=== PATIENT | male | born 1950 | race Caucasian/White ===

== ENCOUNTER 2017-07-17 07:51 | Outpatient (CLI) | payer MEDICARE ==
[2017-07-17 08:26] LABS: Estimated GFR-MDRD - POC Greater than 90
--- NOTE | 2017-07-17 15:19 | MRI ---
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 COMPARISON: None. TECHNIQUE: Brain MRI and internal auditory canal MRI performed with and without intravenous Gadolinium administr ation. Multisequential, multiplanar imaging is performed. FINDINGS: No parenchymal hemorrhage. No extraaxial hematoma. No parenchymal mass, mass effect, or midline chad ft. Brain volume is age appropriate. Cortical cordero-white matter differentiation is preserved. Ventricles and sulci are patent and symmetric. Calvarium has a normal T1 marrow signal intensity. Midline brain parenchymal structures are unremark able. Central arterial flow voids are maintained. No restricted diffusion. No significant T1 or FLAIR white matter hyperintensities. No pathologic enhancement of the brain parenchyma. There is minimal mucosal thickening of the paranasal sinuses. There is partial mastoid air cell opac ification. Internal auditory canal MRI appropriate and essentially symmetric signal intensity in bilateral inner ear structures. There is partial mastoid air cell opacification. There is symmetric signal intensi ty in the 5th cranial nerve complex. There is linear enhancement along the superior aspect of the l eft internal auditory canal suggesting a small enhancing focus associated with the 7th cranial nerve. IMPRESSION: 1. Small linear enhancement in the left internal auditory canal involving the 7th nerve. 2. Partial opacification of both mastoid air cells. POS: [facility]
== END 2017-07-17 07:52 | disposition home or self-care (01) ==
LOC: SCSMRI 07:51
PROVIDERS: ATTEND Otolaryngology Plastic Surgery within the Head & Neck
DX: G51.0 Bell's palsy (principal); H74.90 Unspecified disorder of middle ear and mastoid, unspecified ear
CPT/HCPCS: 70553

== ENCOUNTER 2017-11-14 08:23 | Outpatient (CLI) | payer MEDICARE ==
[2017-11-14 08:56] LABS: Hemoglobin 14.6 g/dL (14.0-18.0); Mean Corpuscular HGB CONC 32.7 g/dL (32.0-36.0); Mean Corpuscular Hemoglobin 32.3 pg (27.0-31.0); Mean Corpuscular Volume 98.8 fl (80.0-94.0); Mean Platelet Volume 6.9 fL (7.4-10.4); Platelet Count 127 thou/uL (130-400); RBC Distribution Width 11.5 % (11.5-14.5); Red Blood Cell (RBC) Count 4.54 mill/uL (4.70-6.10); White Blood Cell (WBC) Count 3.4 thou/uL (4.8-10.8)
[2017-11-14 09:02] LABS: INR-International Normal Ratio 0.9; PTT 30.3 SEC (22.9-36.1); Prothrombin Time 12.7 SEC (12.0-14.7)
[2017-11-14 09:14] LABS: Anion Gap 13 mmol/L (10-20); BUN (Urea Nitrogen) 25 mg/dL (8.4-25.7); Calc. Creatinine Clearance 0 mL/min (70-130); Calcium 9.4 mg/dL (7.8-10.44); Carbon Dioxide 26 mmol/L (23-31); Chloride 106 mmol/L (98-107); Estimated GFR-MDRD Greater than 90; Glucose 105 mg/dL (80-115); Potassium 4.6 mmol/L (3.5-5.1); Sodium 140 mmol/L (136-145)
== END 2017-11-14 08:24 | disposition home or self-care (01) ==
LOC: LABBT 08:23
PROVIDERS: ATTEND Urology
DX: Z01.818 Encounter for other preprocedural examination (principal); R31.0 Gross hematuria; N35.9 Urethral stricture, unspecified
CPT/HCPCS: 80048; 85027; 85610; 85730; 93005; 93010

== ENCOUNTER 2017-11-14 12:30 | Emergency (ER) | payer MEDICARE ==
[2017-11-14 13:27] LABS: Anion Gap 15 mmol/L (10-20); BUN (Urea Nitrogen) 26 mg/dL (8.4-25.7); Calc. Creatinine Clearance 0 mL/min (70-130); Calcium 9.7 mg/dL (7.8-10.44); Carbon Dioxide 23 mmol/L (23-31); Chloride 107 mmol/L (98-107); Estimated GFR-MDRD 79; Glucose 102 mg/dL (80-115); Potassium 4.6 mmol/L (3.5-5.1); Sodium 140 mmol/L (136-145)
[2017-11-14] MEDS ORDERED: Ondansetron HCl/PF 4 MG/2 ML Vial ONE (13:31)
[2017-11-14] MEDS ORDERED: Morphine 5 MG/ML SYRINGE ONE ×2 (13:31→14:31)
[2017-11-14 13:33] LABS: #Basophils 0.1 thou/uL (0.0-0.2); #Lymphocytes 0.7 thou/uL (1.20-3.40); #Monocytes 0.7 thou/uL (0.11-0.59); %Basophils 1.4 % (0.0-1.0); %Eosinophils 0.7 % (0.0-10.0); %Lymphocytes 9.9 % (21.0-51.0); Hemoglobin 14.7 g/dL (14.0-18.0); Mean Corpuscular HGB CONC 34.1 g/dL (32.0-36.0); Mean Corpuscular Hemoglobin 31.6 pg (27.0-31.0); Mean Corpuscular Volume 92.7 fl (80.0-94.0); Mean Platelet Volume 7.2 fL (7.4-10.4); Platelet Count 131 thou/uL (130-400); RBC Distribution Width 11.3 % (11.5-14.5); Red Blood Cell (RBC) Count 4.66 mill/uL (4.70-6.10); White Blood Cell (WBC) Count 6.5 thou/uL (4.8-10.8)
[2017-11-14 14:03] LABS: Bilirubin Small (Negative); Blood, Urine Large (Negative); Clarity Cloudy (Clear); Glucose, Urine (Dipstick) Negative (Negative); Leukocyte Negative (Negative); Nitrite Negative (Negative); Protein, Urine (Dipstick) 100 mg/dL (Neg-Trace); Urobilinogen 0.2 mg/dL (0.2-1.0); pH, Urine 5.5 (5.0-9.0)
[2017-11-14 14:09] LABS: Specific Gravity, Urine 1.023 (1.002-1.036)
[2017-11-14 14:11] LABS: Bacteria/HPF 2+ HPF (None Seen); WBC/HPF 0-3 HPF (0-3)
[2017-11-14] MEDS ORDERED: Ketorolac Tromethamine 30 MG/ML VIAL ONE (14:52)
--- NOTE | 2017-11-14 15:11 | RAD ---
ABDOMEN TWO VIEWS: 11/14/2017 HISTORY: Right lower abdominal pain. Kidney stone. COMPARISON: CT abdomen and pelvis from 11/23/2015. FINDINGS: A few punctate calcifications overly the left renal shadow, likely related to nonobstructing left christopher al calculi. The previously noted left UPJ calculus on the CT exam is not delineated on this exam. D egenerative changes are seen in the spine. Bowel gas pattern is nonspecific. Vascular calcification s overly the pelvis. IMPRESSION: 1. Nonobstructing punctate left nephrolithiasis. 2. Previously noted left ureteropelvic junction calculus at the L3-L4 level seen on recent CT scan e xamination is not delineated on this study. POS: [facility]
== END 2017-11-14 15:09 | disposition home or self-care (01) ==
LOC: SCSER 12:30
DX: N20.0 Calculus of kidney (principal); I10 Essential (primary) hypertension; Z87.442 Personal history of urinary calculi; Z85.46 Personal history of malignant neoplasm of prostate; Z87.891 Personal history of nicotine dependence; Z79.84 Long term (current) use of oral hypoglycemic drugs; Z79.899 Other long term (current) drug therapy
CPT/HCPCS: 74018; 81003; 81015; 96361; 96374; 96375; 96376; J2270; J1885; J2405

== ENCOUNTER 2017-11-20 08:36 | Day surgery (SDC) | payer MEDICARE ==
[2017-11-14 09:03] VITALS: BMI 28.0
[2017-11-20] MEDS ORDERED: Levofloxacin 500 mg/D5W 100 ml Premix Bag ONE (09:08)
[2017-11-20] MEDS ORDERED: Iothalamate Meglumine 60% 50 ML VIAL FS ONE (11:02)
[2017-11-20] MEDS ORDERED: Fentanyl 100 MCG/2 ML VIAL ONE (11:03)
--- NOTE | 2017-11-20 12:31 | RAD ---
RETROGRADE URETHROGRAM INTRAOPERATIVE FLUOROSCOPY: COMPARISON: 12/07/15. HISTORY: Previous ureteral stents. FINDINGS: Retrograde urogram is performed. Fluoroscopy is provided for Dr. Dailey. A total of 12 images demonstrate retrograde opacification of a mild to moderately dilated right intra renal collecting system. Left intra- and extrarenal collecting system is unremarkable. There is terra dence of a stent in the right ureter on some of the images. Complete visualization of stent is not e vident on the examination. IMPRESSION: Fluoroscopy as above. POS: [facility]
--- NOTE | 2017-11-20 12:47 | OP ---
DATE OF PROCEDURE: 11/20/2017 PREOPERATIVE DIAGNOSES: 1. History of gross and microscopic hematuria. 2. History of bilateral renal stones. 3. Possible right ureteral stone with history of meatal stenosis/fossa navicularis stricture. PROCEDURES PERFORMED: Urethral dilatation, cystoscopy, bilateral retrograde. SURGEON: Dr. Dailey. ANESTHETIC: General. ESTIMATED BLOOD LOSS: Minimal. DRAINS: None. PATHOLOGY: None. FINDINGS: There was some distal urethral stricture that was dilated up to 24 Com[place] with RomiArturo brownndkirstin. There was no other strictures noted. He has an absent prostate from robotic radical prostate ctomy few years ago. He had two ureteral orifices with clear efflux. There is no tumor, foreign bod ies or stones in the urinary bladder. Bilateral retrograde studies left completely normal. The righ t, he has a little bit of dilatation of the right proximal ureter and upper collecting system with a little bit of delay in the contrast coming by this point compared to the left side; however, I do not see an obvious stone or filling defect in this location, but it is certainly possibly to have a very small stone. A couple of weeks ago, he had a CAT scan done that showed bilateral stones. None of t hem any significant size that he will be trying to pass a small stone. He has had some symptoms off and on with one ER visit recently. He had requested no stent unless there was something that was obv iously needed for stent and this does not appear to be the case. His contrast does combine at this p oint. OPERATIVE TECHNIQUE: After obtaining written and verbal consent from the patient after receiving IV antibiotics, he was taken the operating suite. He was placed in the supine position on the treatment table. PlexiPulses were placed on his lower extremities and turned on. He was given a general anes thetic and oral obturator intubation and he was placed in the dorsal lithotomy position and sterilely prepped and draped. We initially tried to pass a 22-Comoran sheath. It would not pass because of so me distal urethral stenosis, so we gently dilated this from 18-24 Com[place] and then we brought in a 17- [place] sheath and easily went by this point and into the urinary bladder. The bladder was filled and emptied a number of times being examined with both the 30 and the 70-degree lens. These instruments were removed. We went in with a 20 [place] sheath and a 30-degree lens went in easily. We brought i n a 5-Comoran Pollack catheter. A placement coordinator KUB was taken with the fluoroscopy unit. Contrast was flushe d through a 5-Comoran Pollack catheter and up the right ureteral orifice slowly in a retrograde manner , filling out what appears to be fairly normal caliber ureter. After drainage films, there is a marcelo le bit of contrast that hangs up in the proximal ureter and up in the renal collecting system on that side, but contrast is seen going by it. We then did the left side which was normal. We then advanc ed the Pollack catheter all the way up to the proximal ureter and injected some more contrast as we p ulled it out and again this area did hold a little bit of contrast, a little longer than the opposite side and possibly it could be a small stone there, but is not causing any significant obstruction. I did not leave the stent as the patient does not have any great deal of discomfort from this and he wished did not have a stent if at all possible. He had them before that are uncomfortable and he has passed stones in the recent times. In any event, I found no other significant urologic finding, not kathrin has claimed gross microscopic hematuria, so instruments were removed, and he was taken out of th e dorsal lithotomy position, awakened and extubated and taken by stretcher to the recovery room.
== END 2017-11-20 13:37 | disposition home or self-care (01) ==
LOC: SDC 08:36
PROVIDERS: ATTEND Urology
PROC: 0T7D8ZZ Dilation of Urethra, Via Natural or Artificial Opening Endoscopic (ICD-10-PCS; principal; 2017-11-20)
DX: N35.9 Urethral stricture, unspecified (principal); I10 Essential (primary) hypertension; E78.00 Pure hypercholesterolemia, unspecified; Z87.442 Personal history of urinary calculi; Z79.82 Long term (current) use of aspirin; Z79.899 Other long term (current) drug therapy; Z98.890 Other specified postprocedural states
CPT/HCPCS: 74420; J1956; J3010; Q9961

== ENCOUNTER 2017-12-03 12:51 | Observation (INO) | payer MEDICARE ==
[2017-12-03] MEDS ORDERED: Nitroglycerin 2% Ointment 1 INCH/1 GM Packet ONE (13:09)
[2017-12-03 13:16] LABS: #Basophils 0.1 thou/uL (0.0-0.2); #Eosinphils 0.1 thou/uL (0.0-0.7); #Lymphocytes 0.6 thou/uL (1.20-3.40); #Monocytes 0.4 thou/uL (0.11-0.59); #Neutrophils 3.1 thou/uL (1.40-6.50); %Basophils 1.5 % (0.0-1.0); %Eosinophils 1.9 % (0.0-10.0); %Lymphocytes 15.1 % (21.0-51.0); %Monocytes 8.4 % (0.0-10.0); %Neutrophils 73.2 % (42.0-75.0); Hemoglobin 13.5 g/dL (14.0-18.0); Mean Corpuscular HGB CONC 32.3 g/dL (32.0-36.0); Mean Corpuscular Hemoglobin 31.4 pg (27.0-31.0); Mean Corpuscular Volume 97.3 fL (78.0-98.0); Mean Platelet Volume 6.7 fL (7.4-10.4); Platelet Count 147 thou/uL (130-400); RBC Distribution Width 13.1 % (11.5-14.5); White Blood Cell (WBC) Count 4.3 thou/uL (4.8-10.8)
--- NOTE | 2017-12-03 13:24 | RAD ---
CHEST 1 VIEW: HISTORY: Pain. COMPARISON: None. FINDINGS: Portable semiupright chest demonstrates a normal cardiac silhouette. Pulmonary vessels and hilum are normal. Costophrenic angles are clear. No mass. No consolidation. No pneumothorax or osseous abn ormalities. IMPRESSION: No acute cardiopulmonary process. POS: [facility]
[2017-12-03 13:31] LABS: ALT (SGPT) 18 U/L (8-55); AST (SGOT) 16 U/L (5-34); Albumin 4.1 g/dL (3.4-4.8); Alkaline Phosphatase 66 U/L (40-150); Anion Gap 13 mmol/L (10-20); BUN (Urea Nitrogen) 23 mg/dL (8.4-25.7); Bilirubin, Total 0.6 mg/dL (0.2-1.2); CK (CPK) 39 U/L (30-200); Calc. Creatinine Clearance 0 mL/min (70-130); Calcium 9.4 mg/dL (7.8-10.44); Carbon Dioxide 24 mmol/L (23-31); Chloride 107 mmol/L (98-107); Estimated GFR-MDRD Greater than 90; Globulin 2.6 g/dL (2.4-3.5); Glucose 89 mg/dL (80-115); Lipase 11 U/L (8-78); Potassium 4.4 mmol/L (3.5-5.1); Protein, Total 6.7 g/dL (5.8-8.1); Sodium 140 mmol/L (136-145)
[2017-12-03 13:32] LABS: CKMB 0.7 ng/mL (0-6.6); Troponin I Less than 0.010 ng/mL (< 0.028)
[2017-12-03] MEDS ORDERED: Dextrose 5% in Water 1,000 ML IV PRN (16:26)
[2017-12-03] MEDS ORDERED: HumaLOG 300 UNITS/3 ML VIAL SC PRN ×2 (16:26)
[2017-12-03] MEDS ORDERED: Acetaminophen 325 MG TAB PO PRN (16:26)
[2017-12-03] MEDS ORDERED: Dextrose 50% Abboject 50 ML SYRINGE SLOW IVP PRN (16:26)
[2017-12-03 16:32] VITALS: BMI 26.8
[2017-12-03] MEDS ORDERED: Enoxaparin Sodium 80 MG/0.8 ML SYRINGE SC SCH (17:00)
[2017-12-03] MEDS ORDERED: Aspirin 325 MG TAB PO SCH (17:00)
[2017-12-03 17:35] LABS: Troponin I 0.013 ng/mL (< 0.028)
--- NOTE | 2017-12-03 18:11 | HP ---
DATE OF SERVICE: 12/03/2017 PRIMARY CARE PHYSICIAN: Dr. Chapin. CHIEF COMPLAINT: Chest pain. HISTORY OF PRESENT ILLNESS: This is a 66-year-old male with history of hypertension, dyslipidemia, diabetes, and remote tobacco use, who presented to the emergency room after onset of chest pain today. The patient reports that he has been working outside recently, and today around 11 o'clock while he was working, he had the onset of chest pain in the center of his chest that he describes as an aching quality. He states that after about a minute, he realized it was not indigestion, went into house to lay down, and estimates the pain lasted for 4-6 minutes. The pain resolved and then approximately 30 minutes before he got up, it returned and was associated with lightheadedness. He estimates that this lasted about 3-4 minutes and generally did not feel stable. He thinks he has had chest pain in the past; however, nothing consistent and nothing similar, and his last cardiac evaluation was approximately 4 years ago with his primary care, Dr. Chapin. He denies any radiation of the pain or any vomiting, but states that he did have some nausea the second time the pain occurred. He denies any shortness of breath, precipitating factors, or attempts at other relieving factors. The patient reports his gave him two 325 mg aspirin, and he was taken to the emergency room. Of note, he did have some shortness of breath with activity that resolved prior to the first onset of pain today. He has been working outside which is normal and states that his activity has been less today compared to earlier in the week. In the emergency room, the patient received half inch of nitro paste and the hospitalist called for admission for unstable angina. ALLERGIES: No known drug allergies. CURRENT MEDICATIONS: Reconciled with the patient. 1. Aspirin 81 mg daily. 2. Pravastatin 40 mg at bedtime. 3. Celebrex 200 mg daily. 4. Ramipril 10 mg daily. 5. Bupropion 150 mg once a day. 6. Cialis 20 mg once per week. 7. Metformin 500 mg b.i.d. 8. Vitamin D3, 2000 units daily. 9. One half of hydrocodone tablet rarely and as needed for back pain. PAST MEDICAL HISTORY: 1. Diabetes mellitus type 2. 2. Dyslipidemia. 3. Hypertension. 4. Prostate cancer. 5. Back pain secondary to spinal stenosis. 6. Recent evaluation for kidney stone and gross hematuria with Dr. Dailey. PAST SURGICAL HISTORY: 1. Left knee surgery. 2. Prostatectomy. SOCIAL HISTORY: The patient lives with his , Laura, who is his surrogate decision maker. Quit tobacco years ago and reports alcohol a few times per week , one drink. FAMILY HISTORY: Significant for a father who had coronary artery disease, [place]'s , and a CABG in his 40s. REVIEW OF SYSTEMS: Negative for vomiting, abdominal pain, difficulty with changes in his skin. Positive for the shortness of breath, nausea, lightheadedness. All remaining review of systems are reviewed and negative. PHYSICAL EXAMINATION: VITAL SIGNS: On arrival to the emergency room, blood pressure 140/63, pulse of 80, temperature 97.9, respirations 19, saturations 98% on room air. GENERAL: Awake, alert, responsive, in no apparent distress, able to speak in full sentence. HEENT: Pupils are equal, round, reactive to light. Oral mucosa is pink and moist. NECK: Supple, nontender. No carotid bruits. LYMPHATICS: No palpable cervical or supraclavicular lymphadenopathy. HEART: Normal S1, S2. Regular rate and rhythm. No audible murmurs. LUNGS: Clear to auscultation bilateral. No audible wheezing, rhonchi, or rales. ABDOMEN: Soft. Present bowel sounds. Nontender, nondistended. EXTREMITIES: No clubbing, cyanosis, or edema. VASCULAR: 2+ dorsalis pedis pulses. SKIN: The patient has some linear excoriation on his left lower extremity ( secondary to scratching from dry skin). NEUROLOGIC: No focal deficits. PSYCHIATRIC: Euthymic, linear, logical, goal-directed thought process, and appears stated age. LABORATORY DATA: Reviewed. 1. CBC: 4.3, 13.5, 41.8, 147. 2. Chemistry: 140, 4.4, 107, 24, 23, 0.83, 89. 3. LFTs are negative. 4. Troponin is less than 0.01. Chest x-ray is personally reviewed, no acute abnormalities. EKG shows a right bundle branch block, sinus rhythm, normal axis, normal intervals with some ST depression in V4 through V6. No ST elevation. IMPRESSION: 1. Unstable angina in a patient with multiple risk factors. 2. Diabetes mellitus, appears controlled. 3. Hypertension. 4. Dyslipidemia. 5. Remote tobacco use. 6. History of prostate cancer. PLAN: 1. Observation status in the hospital. 2. We will cover the patient with one full-dose Lovenox as his symptoms are concerning for unstable angina and he is at high risk for heart disease. We will obtain the followup troponins, monitor on telemetry, continue his statin as well as the nitro paste. 3. We will order both echocardiogram and nuclear stress test for tomorrow given the history and risk factors. 4. We will lower the dose of ramipril with hold parameters as his blood pressure is lower with the nitro paste. Holding on beta-lu due to the stress test tomorrow. 5. If his troponin is positive, we will need stat Cardiology consultation and further dosing of Lovenox or other treatment per Cardiology. 6. Holding the metformin in case contrast studies are needed. We will use sliding scale insulin if needed. 7. Holding his Celebrex, Cialis, and bupropion for now. 8. Deep venous thrombosis prophylaxis. The patient will receive a full-dose Lovenox. 9. Gastrointestinal prophylaxis is not indicated. 10. Code status is full and surrogate decision maker is patient's . 11. Reviewed with the patient my concerns about the current situation; that he is at high risk for heart disease; the risks and benefits of full-dose Lovenox, as well as the anticipated plan of care here in the hospital. He demonstrates understanding and agrees. No questions or further needs at end of evaluation. 12. The patient again is at high risk given age, comorbidities, and current presentation. Addendum - after dictation, pt brought up the recent gross hematuria (less than 2 weeks ago) with kidney stone. After the procedure he had hematuria for a few days but none since. Discussed with him that there is no way of knowing if the lovenox will cause bleeding. The 2nd troponin was negative - changing the plan to as follows and he agrees: 1st - obtain the final troponin 2nd - if the troponin is elevated or there is a recurrence of pain, then start a heparin drip, as this can be turned off and rapidly cleared if needed. MTDD
[2017-12-03 20:30] LABS: Troponin I Less than 0.010 ng/mL (< 0.028)
[2017-12-03] MEDS ORDERED: Atorvastatin Calcium 10 MG TAB PO SCH (21:00)
[2017-12-03] MEDS: Nitroglycerin 2% Ointment 1 INCH/1 GM Packet TOP SCH (21:08)
[2017-12-03] MEDS ORDERED: HYDROcodone/Acetaminophen 5/325 mg Tablet PO PRN (23:47)
[2017-12-04 04:21] LABS: #Eosinphils 0.1 thou/uL (0.0-0.7); #Lymphocytes 0.8 thou/uL (1.20-3.40); #Monocytes 0.5 thou/uL (0.11-0.59); #Neutrophils 2.4 thou/uL (1.40-6.50); %Basophils 0.1 % (0.0-1.0); %Eosinophils 2.6 % (0.0-10.0); %Monocytes 12.8 % (0.0-10.0); %Neutrophils 64.6 % (42.0-75.0); Hemoglobin 12.6 g/dL (14.0-18.0); Mean Corpuscular HGB CONC 33.5 g/dL (32.0-36.0); Mean Corpuscular Hemoglobin 32.6 pg (27.0-31.0); Mean Corpuscular Volume 97.3 fL (78.0-98.0); Mean Platelet Volume 6.6 fL (7.4-10.4); Platelet Count 139 thou/uL (130-400); RBC Distribution Width 11.9 % (11.5-14.5); Red Blood Cell (RBC) Count 3.87 mill/uL (4.70-6.10); White Blood Cell (WBC) Count 3.8 thou/uL (4.8-10.8)
[2017-12-04 04:40] LABS: Anion Gap 11 mmol/L (10-20); BUN (Urea Nitrogen) 18 mg/dL (8.4-25.7); Calc. Creatinine Clearance 91 mL/min (70-130); Calcium 9.5 mg/dL (7.8-10.44); Carbon Dioxide 30 mmol/L (23-31); Chloride 106 mmol/L (98-107); Estimated GFR-MDRD 83; Glucose 128 mg/dL (80-115); Potassium 4.1 mmol/L (3.5-5.1); Sodium 143 mmol/L (136-145)
[2017-12-04] MEDS: Nitroglycerin 2% Ointment 1 INCH/1 GM Packet TOP SCH ×2 (06:18→12:55)
[2017-12-04] MEDS ORDERED: ADENOSINE 60 MG/20 ML VIAL ONE (11:10)
--- NOTE | 2017-12-04 12:35 | NM ---
RADIONUCLIDE STRESS AND REST MYOCARDIAL PERFUSION SCAN WITH CT ATTENUATION CORRECTION AND SPECT IMAGI NG WITH LEFT VENTRICULAR WALL MOTION EVALUATION AND EJECTION FRACTION: HISTORY: Chest pain Adenosine protocol. FINDINGS: There is homogeneous uptake of radiotracer throughout the left ventricular myocardium. No focal perfu lincoln defect or reversibility. QGS analysis of gated SPECT images shows no focal wall motion abnormalities. Left ventricular ejection fraction is calculated at 67%. IMPRESSION: 1. Normal myocardial perfusion scan. 2. Normal LVEF. POS: [facility]
--- NOTE | 2017-12-04 13:26 | STRESS ---
Acquisition Time: 2017-12-04 09:30:05 Total Exercise Time: 00:04:00 Test Indications: CHEST PAIN Medications: Protocol: ADENOSINE Max HR: 086 BPM 56% of Pred: 152 BPM Max BP: 136/060 mmHG Max Work Load: 1.0 METS RESTING ECG: NORMAL SINUS RHYTHM AT 59 BPM WITH COMPLETE RIGHT BUNDLE BRANCH BLOCK SYMPTOMS: SHORTNESS OF BREATH NORMAL BP RESPONSE ECTOPY: NONE ECG STRESS: NO SIGNIFICANT CHANGES INTERPRETATION: AWAIT NUCLEAR IMAGES FOR DEFINITIVE DIAGNOSIS Confirmed by MARY NORMAN ([id number]), newspaper photo editor YANELI DRUMMOND ([id number]) on 12/04/2017 1:26:37 PM Referred By: MD Almaz REEVES Confirmed By:MARY NORMAN
[2017-12-04 15:37] VITALS: BP 137/66; TEMP 98.4
== END 2017-12-04 16:07 | disposition home or self-care (01) ==
LOC: SCSER 12:51 → 2SW 16:24
PROVIDERS: ADMIT Family Medicine; ATTEND Family Medicine
DX: I20.0 Unstable angina (principal); E11.9 Type 2 diabetes mellitus without complications; I10 Essential (primary) hypertension; E78.5 Hyperlipidemia, unspecified; Z87.891 Personal history of nicotine dependence; Z85.46 Personal history of malignant neoplasm of prostate; Z79.82 Long term (current) use of aspirin; Z79.84 Long term (current) use of oral hypoglycemic drugs; Z79.899 Other long term (current) drug therapy
CPT/HCPCS: 71045; 78452; 80048; 80053; 82550; 82553; 82962 ×2; 83690; 84484 ×2; 85025 ×2; 93005; 93017; 94760; 99285; A9500; G0378; 36415; 36416; J0153; J1650

== ENCOUNTER 2018-01-08 15:18 | Emergency (ER) | payer MEDICARE | END 2018-01-08 15:32 | disposition home or self-care (01) | LOC: SCSER 15:18 | DX: L03.211 Cellulitis of face (principal); L73.9 Follicular disorder, unspecified; E11.9 Type 2 diabetes mellitus without complications; E78.5 Hyperlipidemia, unspecified; I10 Essential (primary) hypertension; Z87.891 Personal history of nicotine dependence | CPT/HCPCS: 99283 ==

== ENCOUNTER 2018-08-04 10:34 | Emergency (ER) | payer MEDICARE ==
[2018-08-04] MEDS ORDERED: Lidocaine 1% 20 ML MDV ONE (11:18)
[2018-08-04] MEDS ORDERED: Adacel (T-DAP) 0.5 ML SYRINGE ONE (11:22)
[2018-08-04] MEDS ORDERED: Bacitracin Zinc 1 Packet ONE (11:53)
== END 2018-08-04 12:04 | disposition home or self-care (01) ==
LOC: SCSER 10:34
DX: S61.210A Laceration without foreign body of right index finger without damage to nail, initial encounter (principal); Z23 Encounter for immunization; R73.03 Prediabetes; I10 Essential (primary) hypertension; F17.210 Nicotine dependence, cigarettes, uncomplicated; Z79.84 Long term (current) use of oral hypoglycemic drugs; Z79.899 Other long term (current) drug therapy; W26.8XXA Contact with other sharp object(s), not elsewhere classified, initial encounter
CPT/HCPCS: 90715; 99282; J2001

== ENCOUNTER 2020-05-12 11:20 | Inpatient (IN) | payer MEDICARE ==
[2020-05-12] MEDS ORDERED: Morphine 4 MG/ML VIAL ONE ×5 (12:10→18:20)
[2020-05-12] MEDS ORDERED: Ketorolac Tromethamine 30 MG/ML VIAL ONE (12:10)
[2020-05-12] MEDS ORDERED: Ondansetron PF 4 MG/2 ML Vial ONE (12:10)
[2020-05-12 12:26] LABS: #Lymphocytes 0.5 thou/uL (1.20-3.40); #Neutrophils 5.5 thou/uL (1.40-6.50); %Basophils 0.4 % (0.0-1.0); %Eosinophils 0.7 % (0.0-10.0); %Lymphocytes 7.3 % (21.0-51.0); %Monocytes 13.4 % (0.0-10.0); %Neutrophils 78.3 % (42.0-75.0); Hemoglobin 14.1 g/dL (14.0-18.0); Mean Corpuscular HGB CONC 33.1 g/dL (32.0-36.0); Mean Corpuscular Hemoglobin 32.9 pg (27.0-31.0); Mean Corpuscular Volume 99.6 fL (78.0-98.0); Mean Platelet Volume 6.8 fL (7.4-10.4); Platelet Count 151 thou/uL (130-400); RBC Distribution Width 11.9 % (11.5-14.5); Red Blood Cell (RBC) Count 4.29 mill/uL (4.70-6.10); White Blood Cell (WBC) Count 7.1 thou/uL (4.8-10.8)
[2020-05-12 12:48] LABS: Anion Gap 14 mmol/L (10-20); BUN (Urea Nitrogen) 20 mg/dL (8.4-25.7); Calc. Creatinine Clearance 0 mL/min (70-130); Calcium 8.9 mg/dL (7.8-10.44); Carbon Dioxide 27 mmol/L (23-31); Chloride 107 mmol/L (98-107); Glucose 109 mg/dL (83-110); Sodium 144 mmol/L (136-145)
--- NOTE | 2020-05-12 13:35 | CT ---
CT Stone Protocol: 05/12/2020 12:51 PM HISTORY: Left flank pain. History of kidney stones COMPARISON: 11/23/2015, 04/30/2020 TECHNIQUE: Multiple contiguous axial images were obtained and a CT of the abdomen and pelvis without IV contrast . Coronal and sagittal reformats were performed. FINDINGS: This examination is limited for the evaluation of solid organs and vascular structures due to the lac k of intravenous contrast. Lower Chest: within normal limits. Abdomen: Liver: within normal limits. Bile Ducts: Normal caliber. Gallbladder: No calcified gallstones. Normal caliber wall. Pancreas: within normal limits. Spleen: within normal limits. Adrenals: within normal limits. Kidneys: Stranding changes are seen surrounding the left kidney. Moderate left hydronephrosis. There is a 7 mm nonobstructing calcification in the right renal pelvis. Tiny punctate calcifications are seen in the left kidney that are nonobstructing measuring up to 2 mm in size. Pelvis: Reproductive Organs: No pelvic masses. Ureters: 9 mm proximal left ureteral calcification Bladder: within normal limits. Bowel: Normal caliber. Scattered diverticula in the colon. Normal appendix. Mesenteric Lymph Nodes: No enlarged mesenteric lymph nodes. Peritoneum: No ascites or free air, no fluid collection. Vessels: Atherosclerotic calcifications in the aorta and common iliac arteries. Retroperitoneum: within normal limits. Abdominal Wall: within normal limits. Bones: Degenerative changes in the spine. IMPRESSION: 1. Left proximal ureteral calcification with moderate left hydronephrosis 2. Nonobstructing bilateral renal calcifications. 3. Diverticulosis
[2020-05-12 14:58] LABS: Bacteria/HPF None Seen HPF (None Seen); Bilirubin Negative (Negative); Blood, Urine 3+ (Negative); Calcium Oxalate Crystals 1+ HPF (None Seen); Clarity Turbid (Clear); Glucose, Urine (Dipstick) Normal (Negative); Ketone, Urine Trace mg/dL (Negative); Leukocyte Negative Leu/uL (Negative); Mucous/LPF 1+ LPF (<2+); Nitrite Negative (Negative); Protein, Urine (Dipstick) 100 mg/dL (Neg-Trace); RBC/HPF Greater than 50 HPF (0-3); Specific Gravity, Urine 1.026 (1.002-1.036); Squamous Epithelial None Seen HPF (0-3); Urobilinogen Normal mg/dL (Less than 2); WBC/HPF None Seen HPF (0-3); pH, Urine 6.5 (5.0-9.0)
[2020-05-12 16:18] LABS: Platelet Count 157 thou/uL (130-400)
[2020-05-12 16:30] LABS: EPI 148 SEC (67-199)
--- NOTE | 2020-05-12 17:31 | PDOC.HHP ---
Hospitalist HPI - History of Present Illness Left flank pain History of Present Illness: PCP: Dr. Chapin Patient is a 69-year-old male with a past medical history significant for kidney stones, prostate cancer status post prostatectomy, prediabetes and hypertension that presents to the emergency department for the above complaint. The patient reports an extensive history of kidney stones. He is well versed on symptoms and treatments. This summer, he developed hematuria, so he called his doctor and had an xray performed, which showed several kidney stones, mostly on his right side. His hematuria spontaneously subsided. More recently, a CT stone protocol scan was ordered by Dr. Dailey that showed 6 stones in the left kidney and one in the right, along with thickening to the base of the left kidney. He has a biopsy of the affected kidney scheduled on May 25. Then last night, he developed the acute onset of moderate pain to his left flank. He describes the pain as deep with increasing intensity throughout the evening. He reports that this morning it "doubled me over". He reports that he treated his pain with Advil and hot water bottles with no relief of symptoms. He came to the emergency department for further evaluation. He denies any dysuria or hematuria. Denies any nausea vomiting or diarrhea. He says he is mildly constipated. He denies any fever or chills. He has no chest pain, heart palpitations, lightheadedness or swelling his lower extremities. He denies any shortness of breath cough or wheezing. ED Course: VITAL SIGNS MonMay 12, 2020 11:22 DIONNE Robles, [facility] BP: 163/77, Pulse: 73, Resp: 18 (Non-Labored), Temp: 99.1 (Oral), Pain: 10, O2 sat: 97 on (Room Air), Time: 05/12/2020 11:22. VITAL SIGNS MonMay 12, 2020 15:27 DIONNE Bah Emily BP: 153/75, Pulse: 73, Resp: 16, Temp: 97.2 (Oral), O2 sat: 98 on (Room Air), Time: 05/12/2020 15:27. Medications: morphine injection 4 mg IV Push Given 17:11 05/12/2020 morphine injection 4 mg IV Push Given 15:29 05/12/2020 ondansetron HCl intravenous 4 mg IV Push Given 12:35 05/12/2020 morphine injection 4 mg IV Push Given 12:35 05/12/2020 ketorolac injection 15 mg IV Push Given 12:34 05/12/2020 Hospitalist ROS - Review of Systems All other systems reviewed; all pertinent +/- noted in HPI/Subj - Medication Medications: pravastatin MonMay 12, 2020 11:44 DIONNE Castaneda Klara tablet : Strength - 40 mg : ORAL Patient Dose: once a day. CeleBREX MonMay 12, 2020 11:45 DIONNE Castaneda Klara capsule : Strength - 200 mg : ORAL Patient Dose: once a day. buPROPion HCl MonMay 12, 2020 11:46 DIONNE Castaneda Klara tablet extended release 24 hr : Strength - 150 mg : ORAL Patient Dose: 2 times a day. Klor-Con M10 MonMay 12, 2020 11:46 DIONNE Castaneda Klara tablet,ER particles/crystals : Strength - 10 mEq : ORAL Patient Dose: 2 times a day. metFORMIN MonMay 12, 2020 11:47 DIONNE Castaneda Klara tablet : Strength - 500 mg : ORAL Patient Dose: 2 times a day. D3-2000 MonMay 12, 2020 11:48 DIONNE Castaneda Klara capsule : Strength - 2,000 unit : ORAL Patient Dose: 2 times a day. losartan MonMay 12, 2020 16:45 DIONNE Barrera Morgan TABLET : Strength - 25 mg : ORAL Patient Dose: 50 mg Oral once a day (in the morning). Allergies: NKDA Hospitalist History - Past Medical History Source: patient, RN notes reviewed Cardiac: reports: HTN, Hyperlipidemia Renal/: reports: Benign prostatic enlarg. (Status post prostatectomy), Other (Kidney stones) Endocrine: denies: Diabetes - Past Surgical History Past Surgical History: reports: Other (Left knee and prostatectomy) - Family History Other Family History: Noncontributory to this case. - Social History Smoking Status: Current some day smoker (Cigars every 1 to 2 days) Alcohol: reports: Rare Drugs: reports: none Living Situation: With Family Activity level: independent ambulation - Exam General Appearance: NAD, awake alert. negative: ill appearing Eye: anicteric sclera ENT: normocephalic atraumatic Neck: supple, symmetric Heart: RRR, no murmur, no gallops, no rubs, normal peripheral pulses Respiratory: CTAB, no wheezes, no rales, no ronchi, normal chest expansion, no tachypnea Gastrointestinal: soft, non-tender, normal bowel sounds, no guarding, no rigidity Gastrointestinal - other findings: Left CVA tenderness Extremities: no cyanosis, no edema Neurological: no focal deficits Psychiatric: normal affect, A&O x 3 Hospitalist Results - Labs Result Diagrams: 05/12/20 12:12 05/12/20 12:12 Lab results: WBC 7.1 thou/uL (4.8-10.8) 05/12/20 12:12 Hgb 14.1 g/dL (14.0-18.0) 05/12/20 12:12 Hct 42.7 % (42.0-52.0) 05/12/20 12:12 MCV 99.6 fL (78.0-98.0) H 05/12/20 12:12 Plt Count 151 thou/uL (130-400) 05/12/20 12:12 Neutrophils % 78.3 % (42.0-75.0) H 05/12/20 12:12 Sodium 144 mmol/L (136-145) 05/12/20 12:12 Potassium 4.0 mmol/L (3.5-5.1) 05/12/20 12:12 Chloride 107 mmol/L (98-107) 05/12/20 12:12 Carbon Dioxide 27 mmol/L (23-31) 05/12/20 12:12 BUN 20 mg/dL (8.4-25.7) 05/12/20 12:12 Creatinine 0.99 mg/dL (0.7-1.3) 05/12/20 12:12 Glucose 109 mg/dL (83-110) 05/12/20 12:12 Calcium 8.9 mg/dL (7.8-10.44) 05/12/20 12:12 Urine Ketones Trace mg/dL (Negative) A 05/12/20 14:12 Urine Blood 3+ (Negative) A 05/12/20 14:12 Urine Nitrite Negative (Negative) 05/12/20 14:12 Ur Leukocyte Esterase Negative Antelmo/uL (Negative) 05/12/20 14:12 Urine RBC Greater than 50 HPF (0-3) A 05/12/20 14:12 Urine WBC None Seen HPF (0-3) 05/12/20 14:12 Ur Squamous Epith Cells None Seen HPF (0-3) 05/12/20 14:12 Urine Bacteria None Seen HPF (None Seen) 05/12/20 14:12 - Radiology Interpretation CT scan - abdomen Status: report reviewed by me Additional Comment: IMPRESSION: 1. Left proximal ureteral calcification with moderate left hydronephrosis 2. Nonobstructing bilateral renal calcifications. 3. Diverticulosis Hospitalist H&P A/P - Problem (1) Urolithiasis Code(s): N20.9 - URINARY CALCULUS, UNSPECIFIED Status: Acute (2) Left flank pain Code(s): R10.9 - UNSPECIFIED ABDOMINAL PAIN Status: Acute (3) Prediabetes Code(s): R73.03 - PREDIABETES Status: Chronic (4) HTN (hypertension) Code(s): I10 - ESSENTIAL (PRIMARY) HYPERTENSION Status: Chronic - Plan Plan: 69/M with PMH kidney stones presents for left flank pain. Admit to surgical floor, observation status. Expected length of stay less than 2 midnights. Presented hypertensive, NL HR, RR, SPO2, afebrile. CT stone protocol positive for left proximal ureteral stone with moderate hydronephrosis. UA calcium oxalate crystal 1+, blood, RBC, protein culture. CMP and CBC unremarkable. Patient reported recent abnormal finding of left kidney wall and has scheduled biopsy on 05/25. #Urolithiasis Left sided with moderate hydronephrosis. Upon assessment, pain well controlled with morphine and Toradol. On-call urology Consulted by PABLO, plan for Dr. Dailey to perform lithotripsy with possible stent tomorro, Along with biopsy that was scheduled for 05/25. Send UA CX Give IV fluids scheduled toradol and tylenol morphine breakthrough pain start flomax. Start rocephin Consult Dr. Dailey. #Left flank pain Likely to problem for 1. #Prediabetes Takes metformin. Reports hemoglobin A1c and blood sugars well controlled. He does not check his blood sugars at home. Hold metformin for now. BMP every morning. #HTN Presented hypertensive Takes losartan at home. We will restart home dose losartan. SCDs for DVT prophylaxis. Protonix for GI prophylaxis. Full code. Discussed case with Dr. Escalera.
[2020-05-12] MEDS ORDERED: Bisacodyl 5 MG TAB PO PRN (17:58)
[2020-05-12] MEDS ORDERED: Ondansetron PF 4 MG/2 ML Vial IVP PRN (17:58)
[2020-05-12] MEDS ORDERED: Senokot S 8.6-50 MG TAB PO PRN (17:58)
[2020-05-12] MEDS ORDERED: Ondansetron ODT 4 MG TAB PO PRN (17:58)
[2020-05-12] MEDS ORDERED: Calcium Carbonate 500 MG ChewTAB PO PRN (17:58)
[2020-05-12] MEDS ORDERED: Acetaminophen 325 MG TAB ONE (18:40)
[2020-05-12] MEDS ORDERED: Famotidine 20 MG TAB PO SCH (21:00)
[2020-05-12] MEDS ORDERED: Tamsulosin HCl 0.4 MG CAP PO SCH (21:00)
[2020-05-12] MEDS ORDERED: Famotidine/PF 20 mg/2ml Vial SLOW IVP SCH (21:00)
[2020-05-12] MEDS ORDERED: Pantoprazole 40 MG VIAL ONE (21:22)
[2020-05-12] MEDS ORDERED: Acetaminophen 500 MG TAB ONE (21:25)
[2020-05-12] MEDS ORDERED: Sodium Chloride 0.9% 100 ML ONE (21:25)
[2020-05-12] MEDS ORDERED: cefTRIAXone\\ROCEPHIN 1 GM VIAL ONE (21:25)
[2020-05-12] MEDS ORDERED: Pantoprazole 40 MG VIAL IVP SCH (21:30)
[2020-05-12] MEDS: Acetaminophen 500 MG TAB PO SCH (21:31)
[2020-05-12] MEDS ORDERED: Sodium Chloride 0.9% 1,000 ML IV SCH (22:00)
[2020-05-12] MEDS ORDERED: cefTRIAXone\\ROCEPHIN 1 GM in Sodium Chloride 0.9% 100 ML IVPB SCH (22:00)
[2020-05-12] MEDS ORDERED: Morphine 2 MG/ML VIAL SLOW IVP PRN (22:33)
[2020-05-12] MEDS ORDERED: Ketorolac Tromethamine 30 MG/ML VIAL IVP SCH (23:59)
[2020-05-13 00:06] VITALS: BMI 27.8
[2020-05-13] MEDS: Morphine 2 MG/ML VIAL SLOW IVP PRN ×3 (00:26→11:19)
[2020-05-13 01:44] LABS: SARS-CoV-2 MS2 Positive; SARS-CoV-2 N Gene Negative; SARS-CoV-2 S Gene Negative; SARS-CoV-2 by NAA Not Detected (NotDetected); SARS-CoV-2 orf1ab Negative
[2020-05-13 04:06] LABS: Anion Gap 10 mmol/L (10-20); BUN (Urea Nitrogen) 24 mg/dL (8.4-25.7); Calc. Creatinine Clearance 70 mL/min (70-130); Calcium 8.1 mg/dL (7.8-10.44); Carbon Dioxide 29 mmol/L (23-31); Chloride 102 mmol/L (98-107); Glucose 111 mg/dL (83-110); Potassium 4.1 mmol/L (3.5-5.1); Sodium 137 mmol/L (136-145)
[2020-05-13 04:21] LABS: Band 10 % (5-11); Eosinophils 2 % (0-10); Hemoglobin 11.9 g/dL (14.0-18.0); Hypochromia SLIGHT = 6-15 cells (100X) (0-5/hpf); Lymphocytes 16 % (21-51); MDiff Complete? YES; Mean Corpuscular HGB CONC 32.2 g/dL (32.0-36.0); Mean Corpuscular Hemoglobin 32.6 pg (27.0-31.0); Mean Platelet Volume 6.4 fL (7.4-10.4); Monocytes 12 % (0-10); Neutrophil 56 % (42-75); Platelet Count 114 thou/uL (130-400); Platelet Morphology Comment Appears Decreased; RBC Distribution Width 11.7 % (11.5-14.5); Reactive Lymphocytes 4 % (0-10); Red Blood Cell (RBC) Count 3.66 mill/uL (4.70-6.10); White Blood Cell (WBC) Count 4.1 thou/uL (4.8-10.8)
[2020-05-13] MEDS: Acetaminophen 500 MG TAB PO SCH ×2 (05:03→12:20)
[2020-05-13] MEDS ORDERED: Fentanyl 100 MCG/2 ML VIAL ONE (07:09)
[2020-05-13] MEDS ORDERED: Midazolam HCl 2 mg/2 ml Vial ONE (07:35)
--- NOTE | 2020-05-13 08:26 | RAD ---
EXAM: XR Abdomen 1 View/KUB PROVIDED CLINICAL HISTORY: Preoperative evaluation for left ureteral calculus. COMPARISON: CT abdomen and pelvis on 05/12/2020 FINDINGS: A 11 mm x 7 mm calcification is seen adjacent to the left L3 transverse process overlying the region of the left UPJ which corresponds to left ureteral calculus seen on prior CT examination. There is an approximately 6 mm calcification seen just medial to the right renal shadow. A calcification was s een overlying the right renal pelvis on CT examination. Vascular calcifications overlie the pelvis. Bowel gas pattern is nonspecific. Degenerative changes are seen in the spine. IMPRESSION: 1. Left proximal ureteral calculus at the level of the L3 transverse process. 2. Right renal calculus with calculus overlying right renal pelvis.
[2020-05-13] MEDS ORDERED: Iothalamate Meglumine 60% 50 ML VIAL FS ONE (08:59)
[2020-05-13] MEDS ORDERED: Lidocaine 1% PF 5 ML VIAL ONE (11:01)
[2020-05-13] MEDS ORDERED: PROPOFOL 200 MG/20 ML VIAL ONE (11:01)
[2020-05-13] MEDS ORDERED: Ondansetron PF 4 MG/2 ML Vial ONE (11:01)
--- NOTE | 2020-05-13 11:20 | OP ---
DATE OF PROCEDURE: 05/13/2020 PREOPERATIVE DIAGNOSES: 1. Left proximal ureteral stone. 2. History of abnormal mucosa of the left renal pelvis and proximal ureter. POSTOPERATIVE DIAGNOSES: 1. Left proximal ureteral stone. 2. History of abnormal mucosa of the left renal pelvis and proximal ureter. PROCEDURES PERFORMED: 1. Left extracorporeal shockwave lithotripsy. 2. Cystoscopy. 3. Left ureteral washings and brushings. 4. Left retrograde, no stent was placed. ANESTHETIC: General. ESTIMATED BLOOD LOSS: Not recorded. FINDINGS: He had a 9-mm stone that was treated with 2500 shocks at maximum level 4, broke up very well, stent was not placed. Brushings were done as well as cytology from washings. Urine was bloody from the shockwave, but to try to save him another anesthetic, we went into the brushings and washings. Retrograde study showed the stone was pretty much all broken up. There was no obstruction across the proximal ureter, so a stent was not placed. DESCRIPTION OF PROCEDURE: After obtaining written and verbal consent from the patient after documenting normal preoperative blood work, he was taken to the operating suite. He was placed in supine position on the treatment table. PlexiPulses were placed on his lower extremities and turned on. He was given a general anesthetic and oral obturator intubation. He was coupled to the lithotripsy unit nad the stone was placed in the treatment focal point and a shockwave therapy was commenced at a low kV and a low rate. After couple of 100 shocks, a 5-minute pause was given. The rate was standing kept at 60, power was increased to level 4. The stone was very easy to seen and fluoroscopy was used intermittently and the stones started breaking up almost immediately and by 2500 shocks was pretty much gone. At this point, he was moved to a dorsal lithotomy position and sterilely prepped and draped. Cystoscopy was performed with a 22-Congolese sheath. He did have some meatal stenosis, which was not new. We were able to get the 22-Congolese by this. Urethra was otherwise normal. There was an absent prostate. Bloody efflux from the left ureteral orifice. A few stone fragments on the floor of the bladder. These were washed out. There was bloody efflux persisting. A 5-Congolese Pollack catheter was flushed with some saline, advanced up to the level of where the stones were and by this. We then drained out about 50 mL of urine, blood tinged, from the renal pelvis with normal saline and washings of this region and we sent this for cytology. Then, the brushings of this and then did another washing after the brushings were completed, which was sent with the initial cytology. Once this was completed, we used half and half contrast to fill up the collecting system, proximal ureter, and mid ureter. There were no sizable stones remaining. There was no obstruction and contrast going by the region where the stone fragments were and endoscopically, slightly bloody urine continued to efflux into the bladder out the left ureteral orifice, and for this reason, the stent was not placed. The patient at this point was awakened and extubated, taken by alma deliaer to recovery room. Job ID: [id number]
[2020-05-13] MEDS ORDERED: traMADol HCl 50 MG TAB PO SCH (12:00)
[2020-05-13 13:02] VITALS: TEMP 99.6
[2020-05-13 14:55] VITALS: BP 134/61
--- NOTE | 2020-05-13 15:02 | PDOC.DS.DS ---
Provider - Provider Date of Admission: 05/12/20 18:26 Date of Discharge: 05/13/20 Admitting Provider: Fernando Escalera DO Consultations: Urology (Dr. Dailey) Primary Care Physician: Edgar Chiu MD Course - Hospital Course Hospital Course: Discharge diagnosis: 1. Ureterolithiasis 2. Hydronephrosis 3. COVID-19 test negative Hospital course: Patient is a pleasant 15-year-old gentleman who was admitted to the hospital for left-sided ureterolithiasis with moderate hydronephrosis. He was seen by urology service. He underwent left extracorporeal shockwave lithotripsy, cystoscopy, left ureteral washings and brushings, no stent was placed. He showed dramatic and unexpected improvement in terms of his symptoms following the procedure. He has been cleared for discharge by urology service on urodil, tramadol and Colace in addition to his regular home medications. Many thanks for allowing me to participate in your patient's care. Please feel free to contact me with any questions or concerns. Discharge destination: Home Total amount of time spent coordinating this discharge: 22 minutes Resuscitation Status: 05/12/20 17:58 Resuscitation Status Routine Co-Sign Provider: Resuscitation Status: FULL: Full Resuscitation Discussed with: patient - Labs Lab Results: 05/13/20 03:28 05/13/20 03:28 Abnormal Lab Results - Last 48 hrs 05/12/20 12:12: RBC 4.29 L, MCV 99.6 H, MCH 32.9 H, MPV 6.8 L, Neutrophils % 78.3 H, Lymphocytes % 7.3 L, Monocytes % 13.4 H, Lymphocytes # 0.5 L, Monocytes # 1.0 H 05/12/20 14:12: Urine Clarity Turbid A, Urine Protein 100 A, Urine Ketones Trace A, Urine Blood 3+ A, Urine RBC Greater than 50 A, Calcium Oxalate Crystal 1+ A 05/13/20 03:28: WBC 4.1 L, RBC 3.66 L, Hgb 11.9 L, Hct 37.1 L, MCV 101.0 H, MCH 32.6 H, Plt Count 114 L, MPV 6.4 L, Lymphocytes % (Manual) 16 L, Monocytes % (Manual) 12 H, Plt Morphology Comment Appears Decreased L Microbiology - Entire Visit 05/12/20 14:12 Urine clean catch Urine Culture - Preliminary NO GROWTH AT 24 HOURS - Physical Exam Vitals: Vital Signs (12 hours) Temp Pulse Resp BP Pulse Ox 05/13/20 14:54 74 16 134/61 05/13/20 11:00 99.6 F 92 18 115/59 L 93 L 05/13/20 09:50 97.5 F L 69 16 120/57 L 97 05/13/20 08:00 99.5 F 87 16 103/68 93 L 05/13/20 03:00 98.2 F 68 16 124/58 L 96 Weight Weight 183 lb 2 oz Physical Exam: The patient was seen and examined on the day of discharge. Patient denies chest pain or shortness of breath. Vital signs are stable. S1 and S2 are heard. Lungs are clear to auscultation bilaterally. Problem - Discharge Plan Plan of Treatment: FOCUS: Transition from Acute Care after Discharge GOAL: Successful transition to care in the community YOUR TASKS: (1) review all information outlined in your discharge packet (2) follow any instructions outlined in your discharge packet (3) contact your primary care provider if you have questions or need additional assistance Plan - Discharge Medications Home Medications: Medication Instructions Recorded Confirmed Type Celecoxib [Celebrex] 200 mg PO QAM 12/04/15 05/13/20 History Potassium Chloride [Klor-Con M10] 1 tab PO BID 12/04/15 05/13/20 History Pravastatin Sodium 40 mg PO HS 12/04/15 05/13/20 History buPROPion HCl [Zyban] 1 tab PO BID 12/04/15 05/13/20 History metFORMIN HCl [Metformin ER 500 mg PO BID 12/04/15 05/13/20 History Gastric] Cholecalciferol (Vitamin D3) 2 tab PO BID 11/14/17 05/13/20 History [Vitamin D3] Acetaminophen [Acetaminophen Extra 1,000 mg PO Q6HR 05/13/20 05/13/20 History Strength] Docusate [Colace] 100 mg PO DAILY 05/13/20 05/13/20 History Losartan [Cozaar] 50 mg PO DAILY 05/13/20 05/13/20 History traMADol HCl [Tramadol HCl] 50 - 100 mg PO QID PRN 05/13/20 05/13/20 History Allergies: No Known Allergies Allergy (Verified 05/13/20 00:11) - Discharge Instructions Discharge Instructions:: Strain all urine and collect debris Regular diet Drink lots of liquids Limited activity for 48 hours Expect hematuria (blood in urine) Expect dysuria (pain with urination) Take tramadol, colace and urodil as prescribed by urologist. - Follow up Plan Referrals: Jose Alejandro Chapin MD [Active] - 3 Days Fernando Dailey MD [Active] - 2-3 Weeks Disposition: HOME Quality - Care Measures CORE MEASURES:: N/A
[2020-05-13] MEDS ORDERED: FLU VACC QS2020-21(65YR UP)/PF 240 MCG/0.7 ML SYRINGE IM ONE (21:00)
== END 2020-05-13 15:16 | disposition home or self-care (01) | DRG 661 ==
LOC: ERS 11:20 → ERHOLD 18:26 → ONC 23:52
PROVIDERS: ADMIT Family Medicine; ATTEND Internal Medicine
PROC: 0T978ZZ Drainage of Left Ureter, Via Natural or Artificial Opening Endoscopic (ICD-10-PCS; principal; 2020-05-13)
PROC: 0TC78ZZ Extirpation of Matter from Left Ureter, Via Natural or Artificial Opening Endoscopic (ICD-10-PCS; 2020-05-13)
DX: N13.2 Hydronephrosis with renal and ureteral calculous obstruction (principal); I10 Essential (primary) hypertension; Z20.828 Contact with and (suspected) exposure to other viral communicable diseases; N40.0 Benign prostatic hyperplasia without lower urinary tract symptoms; F17.210 Nicotine dependence, cigarettes, uncomplicated; R73.03 Prediabetes; Z79.84 Long term (current) use of oral hypoglycemic drugs; Z79.899 Other long term (current) drug therapy
CPT/HCPCS: 36415; 36416; 74018; 74176; 80048; 81003; 81015; 85025; 85576; 87086; 87635; 88104; 88112; 96374; 96375; 96376; C9113; J0696; J1885; J2250; J2270; J2405; J2704; J3010; J3490; U0003

== ENCOUNTER 2020-07-06 06:02 | Day surgery (SDC) | payer MEDICARE ==
[2020-07-02 10:26] VITALS: BMI 27.3
[2020-07-06 07:35] LABS: Platelet Count 151 thou/uL (130-400)
[2020-07-06 08:05] LABS: EPI 94 SEC (67-199)
[2020-07-06] MEDS ORDERED: Fentanyl 100 MCG/2 ML VIAL ONE (08:43)
[2020-07-06] MEDS ORDERED: Famotidine/PF 20 mg/2ml Vial ONE (08:43)
[2020-07-06] MEDS ORDERED: PHENYLEPHRINE-NS 100 MCG/ML 10 ML SYRINGE ONE (10:55)
[2020-07-06] MEDS ORDERED: PROPOFOL 200 MG/20 ML VIAL ONE (10:55)
[2020-07-06] MEDS ORDERED: Metoclopramide HCl 10 MG/2 ML VIAL ONE (10:55)
[2020-07-06] MEDS ORDERED: Ondansetron PF 4 MG/2 ML Vial ONE (10:55)
[2020-07-06] MEDS ORDERED: Lidocaine 1% PF 5 ML VIAL ONE (10:55)
--- NOTE | 2020-07-06 15:09 | OP ---
DATE OF PROCEDURE: 07/06/2020 PREOPERATIVE DIAGNOSIS: Right renal stone. POSTOPERATIVE DIAGNOSIS: Right renal stone. PROCEDURE PERFORMED: Right extracorporeal shockwave lithotripsy. ANESTHETIC: General. ESTIMATED BLOOD LOSS: Not recorded. FINDINGS: He had a 7-mm right renal pelvic stone, that was treated with 2500 shocks at maximum kV level 5, most of that 4, but a few more done at 5. The stone appeared to break up well and a stent was not placed. DESCRIPTION OF PROCEDURE: After obtaining written and verbal consent from the patient after documenting normal preoperative blood work including platelet function assay, he was taken to the operating suite. He was placed in a supine position on the ESWL table. He was given a general anesthetic and oral obturator intubation. The stone was visualized and he was coupled to the lithotripsy unit and the stone was placed in treatment focal point. Shockwave therapy was commenced, starting at a very low kV at 60 per minute. After couple 100 shocks, a 5-minute pause was given. The kV was brought slowly up to 4 and then after about 1500 shocks, we alternated every couple 100 shocks level 4 and level 5. The stone did appear to fragment well, and for this reason, we did not place a stent. At the end of the procedure, he was awakened, extubated, and taken by stretcher to recovery room. Job ID: [id number]
== END 2020-07-06 12:05 | disposition home or self-care (01) ==
LOC: SDC 06:02
PROVIDERS: ATTEND Urology
PROC: 0TF3XZZ Fragmentation in Right Kidney Pelvis, External Approach (ICD-10-PCS; principal; 2020-07-06)
DX: N20.0 Calculus of kidney (principal); I10 Essential (primary) hypertension; F32.9 Major depressive disorder, single episode, unspecified; Z79.84 Long term (current) use of oral hypoglycemic drugs; Z79.899 Other long term (current) drug therapy
CPT/HCPCS: 36415; 85576; J2405; J2704; J2765; J3010; S0028